=== PATIENT | male | born 1940 | race African-American/Black ===

== ENCOUNTER 2020-01-05 05:01 | Inpatient (IN) | payer OTHER ==
[2020-01-04 12:00] VITALS: BMI 27.3
[2020-01-05 12:36] LABS: EPI CELLS 5 /uL (0-25.1); HYALINE CASTS 1 /uL (0-3.1); URINE APPEARANCE CLEAR; URINE BACTERIA 95 /uL (0-1359); URINE BILIRUBIN NEGATIVE (NEGATIVE); URINE COLOR YELLOW; URINE GLUCOSE (UA) NEGATIVE (NEGATIVE); URINE KETONE NEGATIVE (NEGATIVE); URINE LEUK ESTERASE NEGATIVE (NEGATIVE); URINE NITRITE NEGATIVE (NEGATIVE); URINE PROTEIN TRACE (NEGATIVE); URINE RBC 28 /uL (0-23.9); URINE WBC 3 /uL (0-25.8)
--- NOTE | 2020-01-05 13:13 | HP ---
History & Physical Update - History History: No Change - Physical Physical: No Change - Assessment Assessment: No Change - Plan Plan: No Change
--- NOTE | 2020-01-05 13:14 | OP ---
Operative Note - Note: Operative Date: 01/05/20 Pre-Operative Diagnosis: prostate cancer Operation: prostate cryoablation and cystoscopy Surgeon: Chencho Thayer Anesthesiologist/OTR DRIVER: Akil Motley Anesthesia: General Estimated Blood Loss (mls): 0 Drains & Tubes with Location: 18 fr leyva Operative Report Dictated: Yes
[2020-01-05] MEDS ORDERED: SUCCINYLCHOLINE CHLORIDE 200 MG/10 ML SYRINGE ONE (13:48)
[2020-01-05] MEDS ORDERED: PROPOFOL 20 ML ONE ×2 (13:48)
[2020-01-05] MEDS ORDERED: ceFAZolin SODIUM 1 GM VIAL IVPB ONE (14:00)
[2020-01-05] MEDS ORDERED: DEXAMETHASONE SOD PHOSPHATE 4 MG/1 ML VIAL ONE (14:06)
[2020-01-05] MEDS ORDERED: KETOROLAC TROMETHAMINE 30 MG/1 ML VIAL ONE (14:06)
[2020-01-05] MEDS ORDERED: BACITRACIN 15 GM TUBE TOPICAL OINTMENT ONE (14:43)
[2020-01-05] MEDS ORDERED: BACITRACIN 15 GM TUBE TOPICAL OINTMENT TP ONE (14:48)
[2020-01-05] MEDS ORDERED: PROMETHAZINE HCL 25 MG/1 ML VIAL IVPUSH PRN (15:19)
[2020-01-05] MEDS ORDERED: oxyCODONE HCL 5 MG TABLET PO PRN (15:19)
[2020-01-05] MEDS ORDERED: ONDANSETRON 4 MG/2 ML VIAL IVPUSH PRN (15:19)
[2020-01-05] MEDS ORDERED: METOPROLOL TARTRATE 50 MG TABLET (FP) PO ONE (18:34)
[2020-01-05] MEDS ORDERED: ACETAMINOPHEN 325 MG TABLET (FP) PO PRN (18:35)
[2020-01-05] MEDS: NIFEdipine E.R. 90 MG TABLET PO SCH (22:31)
[2020-01-05] MEDS: CHLORTHALIDONE 25 MG TABLET PO SCH (22:31)
[2020-01-05] MEDS: LOSARTAN POTASSIUM 50 MG TABLET PO SCH (22:31)
[2020-01-05] MEDS: DEXTROSE 5%-0.45% SALINE 1,000 ML IV SCH (22:31)
[2020-01-06] MEDS ORDERED: PT OWN MED DRAWER 7, Y5N ONE (10:18)
[2020-01-06] MEDS: NIFEdipine E.R. 90 MG TABLET PO SCH (10:20)
[2020-01-06] MEDS: CHLORTHALIDONE 25 MG TABLET PO SCH (10:20)
[2020-01-06] MEDS: LOSARTAN POTASSIUM 50 MG TABLET PO SCH (10:20)
[2020-01-06] MEDS: DEXTROSE 5%-0.45% SALINE 1,000 ML IV SCH (11:34)
[2020-01-06 12:33] LABS: BASO % 0.1 % (0-2.0); EOS % 0.4 % (0-4.5); HEMATOCRIT 34.4 % (35.4-49); HEMOGLOBIN 11.5 GM/dL (11.7-16.9); LYMPH % 31.4 % (8-40); MCH 29.5 pg (25.7-33.7); MCHC 33.5 g/dl (32.0-35.9); MEAN PLT VOLUME 10.3 fl (7.5-11.1); MONO % 11.8 % (3.8-10.2); NEUT % 56.3 % (42.8-82.8); PLATELET COUNT 114 K/MM3 (134-434); RBC 3.91 M/mm3 (4.00-5.60); RDW 12.9 % (11.9-15.9); WHITE BLOOD COUNT 9.6 K/mm3 (4.0-10.0)
[2020-01-06 12:41] LABS: INR 1.28 (0.83-1.09); PROTHROMBIN TIME (PATIENT) 15.2 SEC (9.7-13.0)
[2020-01-06 13:09] LABS: ALBUMIN 3.1 g/dl (3.4-5.0); BILIRUBIN,TOTAL 1.8 mg/dL (0.2-1); BLOOD UREA NITROGEN 11.5 mg/dL (7-18); CALCIUM 7.9 mg/dL (8.5-10.1); CREATININE 1.2 mg/dL (0.55-1.3); POTASSIUM 3.1 mmol/L (3.5-5.1); TOT PROT 6.1 g/dl (6.4-8.2)
[2020-01-06] MEDS ORDERED: POTASSIUM CHLORIDE TABS 20 MEQ TABLET.ER (FP) PO ONE (16:30)
[2020-01-06] MEDS: DOCUSATE SODIUM 100 MG CAPSULE (FP) PO SCH (22:44)
[2020-01-07] MEDS: AMOX TR/POT CLAV 500MG/125MG TABLETS (FP) PO SCH ×2 (08:12→17:12)
[2020-01-07 08:34] LABS: HEMATOCRIT 32.2 % (35.4-49); HEMOGLOBIN 10.7 GM/dL (11.7-16.9); MCH 28.7 pg (25.7-33.7); MCHC 33.3 g/dl (32.0-35.9); MEAN CELL VOLUME 86.3 fl (80-96); MEAN PLT VOLUME 9.7 fl (7.5-11.1); PLATELET COUNT 110 K/MM3 (134-434); RBC 3.73 M/mm3 (4.00-5.60); WHITE BLOOD COUNT 6.1 K/mm3 (4.0-10.0)
[2020-01-07 08:40] LABS: CALCIUM 7.2 mg/dL (8.5-10.1); CREATININE 1.2 mg/dL (0.55-1.3); POTASSIUM 3.4 mmol/L (3.5-5.1)
[2020-01-07] MEDS ORDERED: PT OWN MED DRAWER 7, Y5N ONE (09:22)
[2020-01-07] MEDS: DOCUSATE SODIUM 100 MG CAPSULE (FP) PO SCH (09:23)
[2020-01-07] MEDS: NIFEdipine E.R. 90 MG TABLET PO SCH (09:23)
[2020-01-07] MEDS: CHLORTHALIDONE 25 MG TABLET PO SCH (09:24)
[2020-01-07] MEDS: LOSARTAN POTASSIUM 50 MG TABLET PO SCH (09:24)
[2020-01-07] MEDS: DEXTROSE 5%-0.45% SALINE 1,000 ML IV SCH (14:00)
--- NOTE | 2020-01-07 14:02 | OP ---
DATE OF OPERATION: 01/05/2020 PREOPERATIVE DIAGNOSIS: Prostate cancer. POSTOPERATIVE DIAGNOSIS: Prostate cancer. PROCEDURE: Prostate cryoablation and cystoscopy. SURGEON: Chencho Beaulieu MD OPTICAL ENGINEERING TECHNICIAN: None. ANESTHESIA: General via laryngeal mask. ANESTHESIOLOGIST: Akil Motley MD SPECIMENS: None. CULTURES: None. DRAINS: An 18-[place] Boykin catheter. ESTIMATED BLOOD LOSS: Negligible. COMPLICATIONS: None. PROCEDURE: Patient was brought in the operating room, placed on the operating table in the supine position. After administration of general anesthesia via laryngeal mask, intravenous antibiotics were administered. Sequential compression devices were placed. Patient was placed in the dorsal lithotomy position. Perineum was shaved first and then perineum and genitals were prepped and draped in usual sterile manner. An 18-Bar[place] Boykin catheter was placed per urethra into the bladder, 10 mL placed in the balloon. Urine was evacuated and the bladder was filled with 400 mL of sterile normal saline and clamped. Transrectal ultrasound probe was then placed per rectum and transrectal ultrasound of the prostate was done. Plan was devised for prostate cryoablation and for right-sided focal treatment. Using 4 probes these were now placed in the appropriate location under ultrasound guidance. Measurements were taken and the probes were set for the appropriate length of treatment. Two temperature sensors were inserted, one in Denonvilliers' fascia, one in the external sphincter. Now flexible cystoscopy was done after removing Boykin to ensure no cryoablation probes were penetrating the urethra or the bladder. The prostatic urethra was normal. The bladder was entered, thoroughly inspected. There were no foreign bodies, tumors, stones or inflammation. Both ureteral orifices were in their usual location with a clear efflux bilaterally. The scope was retroflexed upon itself and then no probes were seen penetrating the bladder neck. The super stiff guidewire was now inserted through the cystoscope. The cystoscope was removed and a urethral warmer was then placed over the super stiff guidewire into the bladder. Urethral warming was started. Now the cryoablation was done with 2 freeze-thaw cycles. The cryoablation probes were removed. Temperature sensors were removed. Digital pressure on the perineum achieved hemostasis. A sterile compressive dressing was applied. He tolerated the procedure well. An 18-[place] Boykin catheter was replaced. He was transferred to the recovery room in stable condition. CHENCHO BEAULIEU M.D. [id number]
[2020-01-07 14:46] VITALS: BP 109/55; PULSE 97; TEMP 98.1
--- NOTE | 2020-01-07 16:11 | PN ---
Progres Note History of Present Illness: pt w/o c/o , POD # 2 s/p prostate cryo, no further bleeding - Objective Vital Signs: Vital Signs Temperature 98.1 F 01/07/20 14:43 Pulse Rate 97 H 01/07/20 14:43 Respiratory Rate 14 01/07/20 14:43 Blood Pressure 109/55 L 01/07/20 14:43 O2 Sat by Pulse Oximetry (%) 97 01/07/20 14:43 Gastrointestinal: No: Rectal Bleeding Genitourinary: Yes: Leyva Present. No: Hematuria Pelvis: Yes: Bladder Non Palpable Scrotum: Yes: WNL Penis: Yes: WNL Prostate Exam: Yes: Deferred Labs/Additional Data: CBC, BMP 01/07/20 07:50 01/07/20 06:50 INR, PTT INR 1.28 (0.83-1.09) H 01/06/20 11:11 Blood Type Blood Type O POSITIVE 01/06/20 11:11 Antibody Screen Negative 01/06/20 11:11 Problem List - Problems (1) Prostate cancer Assessment/Plan: ok for disch with leyva, rto 01/10 Code(s): C61 - MALIGNANT NEOPLASM OF PROSTATE (2) Hematuria Code(s): R31.9 - HEMATURIA, UNSPECIFIED
[2020-01-08] MEDS ORDERED: POTASSIUM CHLORIDE TABS 20 MEQ TABLET.ER (FP) PO SCH (10:00)
== END 2020-01-07 17:36 | disposition home or self-care (01) | DRG 708 ==
LOC: JASUSAT 05:01 → JASU-SURG 05:01 → J8W 05:02 → EDBD 13:00 → J8W 21:44
PROVIDERS: ADMIT Urology; ATTEND Urology
PROC: 0V503ZZ Destruction of Prostate, Percutaneous Approach (ICD-10-PCS; principal; 2020-01-05 13:00)
PROC: 0TJB8ZZ Inspection of Bladder, Via Natural or Artificial Opening Endoscopic (ICD-10-PCS; 2020-01-05 13:00)
DX: C61 Malignant neoplasm of prostate (principal); R31.9 Hematuria, unspecified
CPT/HCPCS: 36415; 80048; 80053; 81003; 85025; 85027; 85610; 86850; 86900; 86901; 94760; U0003